=== PATIENT | female | born 1955 | race Caucasian/White ===

== ENCOUNTER → 2017-01-31 | Outpatient (CLI) | payer BC | LOC: MC.RAD 10:24 | DX: Z12.31 Encounter for screening mammogram for malignant neoplasm of breast (principal) ==

== ENCOUNTER 2018-03-29 22:07 | Emergency (ER) | payer BC ==
[~2018-03-29] VITALS: Ht 154.9 cm; Wt 55.9 kg
[2018-03-29 22:11] VITALS: TEMP 97.4
[2018-03-29 22:31] LABS: BASO # 0.1 (0.0-0.2); BASO % 0.5 % (0.0-2.0); EOS # 0.2 (0.0-0.7); EOS % 1.4 % (0-4.0); GRAN # 9.6 (1.4-6.5); GRAN % 74.7 % (42.2-75.2); HEMATOCRIT 44.3 % (37.0-47.0); HEMOGLOBIN 15.3 g/dl (12.5-16.0); LYMPH # 2.4 (1.2-3.4); LYMPH % 18.4 % (20.0-51.0); MEAN CELL VOLUME 90 fl (80.0-100.0); MEAN CORPUSCULAR HEMOGLOBIN 31 pg (27.0-31.0); MEAN CORPUSCULAR HGB CONC 35 g/dl (33.0-37.0); MEAN PLATELET VOLUME 9.6 fl (7.4-10.4); MONO # 0.6 (0.1-0.6); MONO % 4.8 % (1.7-9.3); PLATELET COUNT 263 K/mm3 (130-400); REDCELL DISTRIBUTION WIDTH-CV 11.9 % (11.5-14.5)
[2018-03-29 22:42] LABS: ALBUMIN 4.9 gm/dL (3.5-5.0); BILIRUBIN,TOTAL 0.8 mg/dL (0.0-1.0); CALCIUM 10.8 mg/dL (8.4-10.2); CREATININE, serum 0.69 mg/dL (0.52-1.25); TOTAL PROTEIN 9.5 gm/dL (6.4-8.2)
[2018-03-29 22:45] LABS: POTASSIUM 3.6 mmol/L (3.4-5.0)
[2018-03-29] MEDS ORDERED: ZOCOR 40MG40 MG PO (22:45)
[2018-03-29] MEDS ORDERED: FOSAMAX 70MG TA70 MG PO (22:46)
[2018-03-30 02:27] VITALS: BP 132/91; PULSE 64
== END 2018-03-30 02:27 | disposition home or self-care (01) ==
LOC: COL.ER 22:07
PROVIDERS: Emergency Medicine
DX: R11.10 Vomiting, unspecified (principal); R10.30 Lower abdominal pain, unspecified
CPT/HCPCS: J1170; J2405; J2765; J7030; Q9967

== ENCOUNTER → 2019-01-15 | Outpatient (CLI) | payer BC ==
[~2019-01-15] MED LIST: FOSAMAX 70MG TA70 MG PO; ZOCOR 40MG40 MG PO
== END ==
LOC: MC.RAD 10:17
DX: Z12.31 Encounter for screening mammogram for malignant neoplasm of breast (principal)

== ENCOUNTER → 2021-10-04 | Outpatient (CLI) | payer BC | LOC: MC.RAD 14:28 | DX: Z12.31 Encounter for screening mammogram for malignant neoplasm of breast (principal) ==

== ENCOUNTER 2021-12-02 15:47 | Outpatient (CLI) | payer BC ==
[~2021-12-02] VITALS: Ht 154.9 cm; Wt 64.5 kg
[2021-12-02] MEDS ORDERED: LIPITOR20 MG PO (16:14)
[2021-12-02 16:15] VITALS: BP 123/77; PULSE 76; TEMP 99
== END 2021-12-02 16:57 ==
LOC: EUO 15:47
DX: M81.0 Age-related osteoporosis without current pathological fracture (principal)
CPT/HCPCS: J0897

== ENCOUNTER 2022-06-10 14:02 | Outpatient (CLI) | payer BC ==
[~2022-06-10] VITALS: Ht 154.9 cm; Wt 65.2 kg
[2022-06-10] MEDS ORDERED: LIPITOR20 MG PO (14:26)
[2022-06-10 14:32] VITALS: BP 128/82; PULSE 81; TEMP 98.5
== END 2022-06-10 14:32 ==
LOC: EUO 14:02
DX: M81.0 Age-related osteoporosis without current pathological fracture (principal)
CPT/HCPCS: J0897

== ENCOUNTER → 2023-11-09 | Outpatient (CLI) | payer BC ==
[~2023-11-09] MED LIST changes: +LIPITOR20 MG PO
== END ==
LOC: MC.RAD 13:09
DX: Z12.31 Encounter for screening mammogram for malignant neoplasm of breast (principal)